=== PATIENT | male | born 1980 | race Caucasian/White ===

== ENCOUNTER 2020-04-25 17:28 | Emergency (ER) | payer MEDICAID, OTHER ==
[~2020-04-25] VITALS: Ht 170.2 cm; Wt 77.3 kg
[~2020-04-25 17:28] MED LIST: HYDR-4383 PO; LIB25C PO; NO HOME MEDS; PROM25TA14 PO
[2020-04-25] MEDS ORDERED: PRED10TA23 PO (17:47)
[2020-04-25] MEDS ORDERED: ALBU8.5H8 INH (17:47)
== END 2020-04-25 17:56 | disposition home or self-care (01) ==
LOC: ER 17:29
DX: R06.02 Shortness of breath (principal); Z72.89 Other problems related to lifestyle; Z79.899 Other long term (current) drug therapy
CPT/HCPCS: 99283

== ENCOUNTER 2020-06-26 04:45 | Emergency (ER) | payer MEDICAID ==
[~2020-06-26] VITALS: Ht 170.2 cm; Wt 170.0 kg
[~2020-06-26 04:45] MED LIST changes: +CARV6.253 PO; -HYDR-4383 PO; -LIB25C PO; +LISI-642 PO; +LORA-269 PO; -NO HOME MEDS; -PROM25TA14 PO; +SPIR25TA PO
[2020-06-26 05:38] VITALS: BP 141/120
== END 2020-06-26 05:48 | disposition home or self-care (01) ==
LOC: ER 04:45
DX: R07.89 Other chest pain (principal); F15.10 Other stimulant abuse, uncomplicated; R11.2 Nausea with vomiting, unspecified; Z79.899 Other long term (current) drug therapy
CPT/HCPCS: 71045; 93005; 99283